=== PATIENT | female | born 1990 | race Two or more races ===

== ENCOUNTER 2020-05-05 20:09 | Emergency (ER) | payer SELFPAY ==
[~2020-05-05] VITALS: Ht 152.4 cm; Wt 81.0 kg
[2020-05-05] MEDS ORDERED: fentaNYL PF VIAL 100 MCG/2 ML VIAL ONE (21:39)
[2020-05-05 21:47] VITALS: BP 144/91
--- NOTE | 2020-05-05 22:22 | PHYS DOC ---
Past Medical History Past Medical History: No Pertinent History Past Surgical History: No Surgical History Smoking Status: Never Smoker Alcohol Use: None General Adult EDM: Chief Complaint: LACERATION/AVULSION HPI: HPI: Patient is a 29 year old female who presents with was sewing and lacerated her Left dorsal hand distal to the index finger. Denies pain. She can make a full fist. Denies any numbness or tingling. Radial pulse is strong and present. Can wiggle and move all fingers. Cap refill less than 3 seconds. Review of Systems: Review of Systems: Integument: Denies rash. Laceration [] Heart Score: Risk Factors: Risk Factors: DM, Current or recent (<one month) smoker, HTN, HLP, family history of CAD, obesity. Risk Scores: Score 0 - 3: 2.5% MACE over next 6 weeks - Discharge Home Score 4 - 6: 20.3% MACE over next 6 weeks - Admit for Clinical Observation Score 7 - 10: 72.7% MACE over next 6 weeks - Early Invasive Strategies Current Medications: Current Medications Medications (Trade) Dose Ordered Sig/Ousmane Start Time Stop Time Status Last Admin Dose Admin Fentanyl Citrate (Fentanyl 2ml Vial) 100 mcg STK-MED ONCE 05/05/20 21:39 05/05/20 21:39 DC Allergies: Allergies: Allergies Coded Allergies Type Severity Reaction Last Updated Verified No Known Drug Allergies 05/05/20 No Physical Exam: PE: Constitutional: Well developed, well nourished, no acute distress, non-toxic appearance. [] HENT: Normocephalic, atraumatic, bilateral external ears normal, oropharynx moist, no oral exudates, nose normal. [] Eyes: PERRLA, EOMI, conjunctiva normal, no discharge. [] Neck: Normal range of motion, no tenderness, supple, no stridor. [] Cardiovascular:Heart rate regular rhythm, no murmur [] Lungs & Thorax: Bilateral breath sounds clear to auscultation [] Abdomen: Bowel sounds normal, soft, no tenderness, no masses, no pulsatile masses. [] Skin: Warm, dry, no erythema, no rash. Left dorsal hand laceration [] Back: No tenderness, no CVA tenderness. [] Extremities: No tenderness, no cyanosis, no clubbing, ROM intact, no edema. [] Neurologic: Alert and oriented X 3, normal motor function, normal sensory function, no focal deficits noted. [] Psychologic: Affect normal, judgement normal, mood normal. [] Current Patient Data: Vital Signs: Vital Signs Date Time Temp Pulse Resp B/P (MAP) Pulse Ox O2 Delivery O2 Flow Rate FiO2 05/05/20 21:47 98.2 90 16 144/91 (108) 98 Room Air 98.2 EKG: EKG: [] Radiology/Procedures: Radiology/Procedures: [] Impression: [facility] [address] [place] [address] IMAGING REPORT Signed PATIENT: CHELITA ANDRADEOUNT: [id number] : 1990 LOCATION: ER AGE: 29 SEX: F EXAM STATUS: REG ER ORD. PHYSICIAN: ILSA DEL REAL APRN REASON: 1st digit MC laceration PROCEDURE: HAND LEFT 3V Exam: Left hand 3 views INDICATION: First digit MC laceration TECHNIQUE: Frontal, lateral and oblique views of the left hand Comparisons: None FINDINGS: Bone mineralization is normal. No acute or healed fractures. Soft tissues are unremarkable. Joint spaces are well-maintained. IMPRESSION: No acute osseous abnormality. Electronically signed by: Ran Farrell MD (05/05/2020 10:39 PM) [id number] DICTATED and SIGNED BY: RAN FARRELL MD DATE: 05/05/20 2239 Course & Med Decision Making: Course & Med Decision Making Pertinent Labs and Imaging studies reviewed. (See chart for details) See HPI. Laceration is approximately 1.5 to 2 inches long. Edges are approximated. There is no depth. Laceration repair Location: Left dorsal hand Local anesthesia: None Interrupted sutures/Internal sutures: Dermabond Nerve/ligament/muscle damage: None Cleaning and irrigation: Chlorhexidine and saline The appropriate timeout was taken. The area was prepped and draped in the usual sterile fashion. The wound was copiously irrigated with normal saline and chlorhexidine. Patient tolerated well without complication. Dressing was applied to the area follow-up education is given to observe for signs and symptoms of infection, bleeding and to follow-up promptly if these occur. Patient can return in 48 hours for a wound recheck. Sutures to be removed in 7 to 10 days. Dragon Disclaimer: Dragon Disclaimer: This electronic medical record was generated, in whole or in part, using a voice recognition dictation system. Departure Departure Impression: Primary Impression: Laceration Disposition: 01 HOME, SELF-CARE Condition: STABLE Referrals: ERIKA NAJERA (PCP) Patient Instructions: Laceration Care, Adult, Stitches, [place] or Skin Adhesive Strips, [id number] Additional Instructions: Watch for signs of infection. Keep covered. Do not apply any antibiotic ointment or lotions over as it will break the glue down. Justicifation of Admission Dx: Justifications for Admission: Justification of Admission Dx: N/A ILSA DEL REAL LICENSING OFFICER May 05, 2020 22:22
--- NOTE | 2020-05-05 22:42 | RAD ---
Exam: Left hand 3 views INDICATION: First digit MC laceration TECHNIQUE: Frontal, lateral and oblique views of the left hand Comparisons: None FINDINGS: Bone mineralization is normal. No acute or healed fractures. Soft tissues are unremarkable. Joint spaces are well-maintained. IMPRESSION: No acute osseous abnormality. Electronically signed by: Ran Velazquez MD (05/05/2020 10:39 PM) [id number]
[2020-05-05] MEDS ORDERED: DIPH,PERTUSS(ACELL),TET VAC/PF 0.5 ML SYRINGE. VAX IM ONE ×2 (23:00→23:30)
== END 2020-05-05 22:55 | disposition home or self-care (01) ==
LOC: ER 20:09
DX: S61.211A Laceration without foreign body of left index finger without damage to nail, initial encounter (principal); Y28.8XXA Contact with other sharp object, undetermined intent, initial encounter; Y93.89 Activity, other specified; Y92.89 Other specified places as the place of occurrence of the external cause; Y99.8 Other external cause status
CPT/HCPCS: 12001; 12002; 73130; 90471; 90715; 99283